=== PATIENT | female | born 1965 | race Two or more races ===

== ENCOUNTER 2018-08-22 12:00 | Emergency (ER) | payer OTHER ==
[~2018-08-22] VITALS: Ht 162.6 cm; Wt 130.0 kg
--- NOTE | 2018-08-22 12:12 | NUR ---
[facility]-Pt slipped down last two stairs while at work. Pt states hit the L side of her head on the wall, then fell back onto her R wrist. R wrist CMS intact, splint in place applied by EMS. -LOC Ice pack applied to Pt's R wrist. Pt positioned for comfort in bed. Pt states that Fentanyl given by EMS AUDITING SPECIALIST helped her pain, now 3/10. Continuous oxygen and BP Monitors applied, all safety measures observed. Dr. Coleman at bedside to evaluate pt.
[2018-08-22] MEDS ORDERED: BP med PO (12:16)
--- NOTE | 2018-08-22 12:17 | NUR ---
Pt to xray
[2018-08-22] MEDS ORDERED: HYDROcodone/APAP 5/325 TABLET PO ONE (12:30)
[2018-08-22] MEDS ORDERED: HYDROcodone/APAP 5/325 TABLET ONE (12:31)
--- NOTE | 2018-08-22 12:37 | NUR ---
Task RN: Patient resting on gurney. She is very teary and rates her pain in the right wrist as 10/10. Patient provided 5mg [place] for pain. Patient offered a blanket. Reassess pain in 1 hour.
[2018-08-22 13:27] VITALS: BP 143/73
== END 2018-08-22 13:30 | disposition home or self-care (01) ==
LOC: ED 13:20
DX: S52.591A Other fractures of lower end of right radius, initial encounter for closed fracture (principal); I10 Essential (primary) hypertension; W01.0XXA Fall on same level from slipping, tripping and stumbling without subsequent striking against object, initial encounter; Y93.01 Activity, walking, marching and hiking; Y92.69 Other specified industrial and construction area as the place of occurrence of the external cause; Y99.0 Civilian activity done for income or pay
CPT/HCPCS: 29125; 99284